=== PATIENT | male | born 1990 | race Caucasian/White ===

== ENCOUNTER 2016-06-02 11:15 | Inpatient (IN) | payer OTHER ==
--- NOTE | ~2016-06-02 | HP ---
Unit #: [id number] #: [id number] Patient: ИРИНА MOYA [id number] [facility] [address] [place] [address] [id number] MR#: [id number] NAME: ИРИНА MOYA. ROOM: P110 Age: 25 Sex: M Admission Date: 06/02/2016 : 1990 Attending Physician: Calli Waite M.D. Admitting Physician: Calli Waite M.D. Primary Care Physician: Destiny Bingham M.D. HISTORY AND PHYSICAL HISTORY OF PRESENT ILLNESS Ирина is a 25 year old admitted to [address] [place] [address] because of his continued drug use. He has had other admissions to this facility. PAST MEDICAL HISTORY Long history of polysubstance abuse to include alcohol and methamphetamine. PAST SURGICAL HISTORY Nothing reported. ALLERGIES Penicillin (hives). SOCIAL HISTORY Smokes 1 1/2 packs per day, drinks alcohol frequently. Has a history of illicit drug use to include methamphetamine. FAMILY HISTORY Medically noncontributory. REVIEW OF SYSTEMS CONSTITUTIONAL: No fever or chills. HEENT: Denies any sore throat, ear pain or runny nose. CARDIOVASCULAR: Denies chest pain, irregular heart rhythm or palpitations. CHEST: Denies shortness of breath or cough. No hemoptysis. GASTROINTESTINAL: Denies nausea, vomiting, diarrhea or chronic constipation. ENDOCRINE: Denies history of increased thirst or urination. No recent significant weight loss or gain. GENITOURINARY: Denies dysuria, frequency, or hematuria. SKIN: Denies any rashes. HEMATOLOGIC: Denies history of increased bleeding or bruising. MUSCULOSKELETAL: Denies any hot, swollen joints. No generalized muscle pain. NEUROLOGIC: Denies problems with vision or speech. No frequent, severe headaches. No numbness, tingling or weakness in any extremities. Denies loss of bladder or bowel control. CURRENT MEDICATIONS 1. Abilify 400 mg IM q month Unit #: [id number] #: [id number] Patient: ИРИНА MOYA 2. Neurontin 400 mg t.i.d. 3. Inderal 20 mg t.i.d. 4. Thorazine 50 mg q.6 h. p.r.n. 5. Milk of Magnesia p.r.n. 6. Maalox p.r.n. 7. Tylenol p.r.n. 8. Nicotine patch 21 mg daily 9. Ambien 10 mg q.h.s. p.r.n. PHYSICAL EXAMINATION GENERAL: Alert, well-nourished, in no apparent distress. VITAL SIGNS: Blood pressure 130/94, heart rate 80, respirations 16, temperature 98.6. WEIGHT: 216 pounds. HEIGHT: 5'10". SKIN: Warm and dry without rash or lesion. HEENT: Normocephalic. TMs not viewed. Oral and nasal passages clear. Conjunctivae clear. Pupils equal, round and reactive to light and accommodation. Extraocular movements intact. NECK: Supple without lymphadenopathy or thyromegaly. HEART: Regular rate and rhythm without murmur. LUNGS: Clear. ABDOMEN: Soft, nontender. : Not done. EXTREMITIES: No evidence of cyanosis, clubbing or edema. Moves all extremities without focal deficit. NEUROLOGICAL: Grossly within normal limits. Cranial Nerves: II: Visual borden are intact. III, IV AND : Extraocular movements are intact. Pupils are equal, round and reactive to light. V: Facial sensation is grossly normal. VII: Facial movements and expression are normal. VIII: Auditory acuity grossly intact. IX, X: Uvula is midline. Phonation is normal. XI: Patient shrugs shoulders and turns head normally. XII: Tongue protrudes in the midline. Sensory and Motor Function: Sensory and motor sensation is grossly normal. Motor: moves all extremities well. Coordination: Gait is normal. Deep Tendon Reflexes: Intact. IMPRESSION Psychiatric admission RECOMMENDATIONS PSYCHIATRIC: Per psychiatrist. MEDICAL: I see no contraindications to participating in facility's activities. MEDICAL PROGNOSIS Good. MEDICAL CONDITION Stable. Dictated by... Unit #: [id number] #: [id number] Patient: ИРИНА MOYA Deepika Murdock P.A.-C. for Francisco Javier Dutta/cliff TD: 06/03/2016 04:16 JOB #: [id number] HISTORY AND PHYSICAL X Alondra Murdock X HISTORY AND PHYSICAL
--- NOTE | ~2016-06-02 | PA ---
Unit #: [id number] #: [id number] Patient: ИРИНА SHANKS [id number] [place] [address] [id number] I MR#: [id number] NAME: ИРИНА SHANKS. ROOM: P110 Age: 25 Sex: M Admission Date: 06/02/2016 : 1990 Date of Assessment: Attending Physician: Calli Waite M.D. Admitting Physician: Calli Waite M.D. Primary Care Physician: Destiny Bingham M.D. PSYCHIATRIC ASSESSMENT DATE OF SERVICE 06/03/2016. IDENTIFYING DATA Mr. Shanks is a 25-year-old, single, white male, who was stepped up to the inpatient unit from the outpatient treatment program. CHIEF COMPLAINT "Relapsed on meth." HISTORY OF PRESENT ILLNESS Mr. Shanks is a 25-year-old white male with history of schizoaffective disorder, who is on a long-acting monthly injection, and has been failing the outpatient treatment program. He has been seen to be persistently psychotic and then refusing most of the treatment options recommended; however, he came in on Thursday morning and was seen to be very bizarre, disorganized, and did admit that he relapsed on methamphetamine over the weekend and was very paranoid, delusional, not making much sense, unable to carry on meaningful conversation, was completely out of touch with reality, and unable to even to take care of his personal hygiene and shaved half of the face and on the face, there were patches of hair all over his face and his shirt was not buttoned right and his hair were all messed up and he was very restless, anxious, and unable to sit still and was exhibiting some agitation, irritability, and was difficult to be getting any meaningful conversation and was seen to be danger to self and others with worsening psychosis and ability to take care of himself and as such, recommendation for inpatient level of care was made and the patient was stepped up to the inpatient unit. SUBSTANCE ABUSE HISTORY The patient has a history of methamphetamine dependence and though he has experimented with other drugs, it appears that methamphetamine has been his drug of choice. PAST PSYCHIATRIC HISTORY The patient has a long history of chronic mental illness with schizoaffective disorder, multiple inpatient hospitalizations across different facilities including [facility], and [facility] and currently [facility] as well as with ongoing long-[facility] through [facility], but he has been on long-acting injectable antipsychotic, a couple of are maintained, but has been Unit #: [id number] #: [id number] Patient: ИРИНА SHANKS noncompliant with most of his oral medications and as such, has been decompensating. PAST MEDICAL HISTORY No acute or chronic medical illnesses. ALLERGIES Penicillin. PERSONAL AND SOCIAL HISTORY A 25-year-old white male, who reports that he is single, unemployed, and lives by himself and has fairly decent social support system. His father has been involved in his care. MENTAL STATUS EXAMINATION Young white male, who was casually dressed with fair personal hygiene, appears to be in no acute distress or discomfort. He was awake and alert on interaction with intact orientation to time, place, and person. His mood was anxious and depressed with a congruent affect. His speech was slow and tangential. His thought processes were disorganized with some looseness of associations and flight of ideas and paranoid ideations and delusional behavior. His insight and judgment remain significantly impaired. DIAGNOSTIC IMPRESSION Psychiatric: Schizoaffective disorder, bipolar type, most recent episode manic with psychosis; methamphetamine dependence, moderate. Medical: None. Stressors: Moderate psychosocial stressors. TREATMENT PLAN 1. The patient has presented with a history of chronic mental illness and has been decompensating and will need inpatient hospitalization for safety and stabilization. We will start him back on his home medications. We will adjust the medications and monitor response. 2. Supportive therapy was provided to the patient. 3. Safe, structured, and nourishing environment will be provided. ESTIMATED LENGTH OF STAY 5 to 7 days. ABILITY TO HELP SELF Limited. WILLINGNESS TO HELP SELF The patient appears to be willing to help self. STRENGTHS 1. Communicative. 2. Cooperative. PROBLEMS 1. Chronic dysphoric symptoms. 2. Chronic chemical dependency. 3. Poor social support system. DISCHARGE CRITERIA This will be contingent upon the patient's ability to show resolution of Unit #: [id number] #: [id number] Patient: ИРИНА SHANKS his psychosis and his ability to stay safe to himself, particularly after discharge from the hospital. Dictated by... Francisco Javier Hackett/afsaneh TD: 06/04/2016 02:05 JOB #: [id number] PSYCHIATRIC ASSESSMENT X Calli Waite MD PSYCHIATRIC ASSESSMENT
--- NOTE | ~2016-06-02 | DS ---
Unit #: [id number] #: [id number] Patient: ИРИНА SHANKS [id number] [facility] [address] [place] [address] [id number] I MR#: [id number] NAME: ИРИНА SHANKS. ROOM: [facility] Age: 25 Sex: M Admission Date: 06/02/2016 : 1990 Discharge Date: 06/06/2016 Attending Physician: Calli Waite M.D. Primary Care Physician: Destiny Bingham M.D. DISCHARGE SUMMARY IDENTIFYING DATA Mr. Shanks is a 25-year-old single white male, who was stepped up to the inpatient unit from the outpatient treatment program. DISCHARGE DIAGNOSES Psychiatric: Schizoaffective disorder, bipolar type, most recent episode manic with psychosis; methamphetamine dependence, moderate. Medical: None. Stressors: Moderate psychosocial stressors. HISTORY OF PRESENT ILLNESS Please see initial psychiatric evaluation for details. PAST PSYCHIATRIC HISTORY Please see initial psychiatric evaluation for details. PAST MEDICAL HISTORY Please see initial psychiatric evaluation for details. HOSPITAL COURSE The patient was admitted to the adult psychiatric unit at [facility] and was oriented to the hospital environment. Routine p.r.n. medications were initiated, and he was started back on his home medications and medications were adjusted and Zyprexa was added and increased to 20 mg at bedtime with good tolerability and therapeutic response. Followed by which, it was decided that he will be discharged home and will continue treatment on an outpatient basis. DISCHARGE MEDICATIONS Zyprexa 20 mg one at bedtime for psychosis, and Abilify Maintena 400 mg intramuscular every 30 days with next dose being due on 06/06/2016. DISCHARGE CONDITION Stable. PROGNOSIS Fair. Dictated by... Calli Waite M.D. IAA/kelinl Unit #: [id number] #: [id number] Patient: ИРИНА SHANKS TD: 06/06/2016 08:44 JOB #: [id number] DISCHARGE SUMMARY X Calli Waite MD X DISCHARGE SUMMARY
--- NOTE | ~2016-06-02 | PN ---
Unit #: [id number] #: [id number] Patient: ИРИНА SHANKS [id number] [facility] [address] [place] [address] [id number] I MR#: [id number] NAME: ИРИНА SHANKS. ROOM: P125 Age: 25 Sex: M Admission Date: 06/02/2016 : 1990 Attending Physician: Calli Waite M.D. Admitting Physician: Calli Waite M.D. Primary Care Physician: Francisco Javier Bowen PROGRESS NOTES DATE OF SERVICE 06/05/2016 DISCUSSION Mr. Shanks is a 25-year-old white male who was seen today. Chart was reviewed and case was discussed with the staff. He has been anxious, withdrawn, and seclusive to himself that he has been taking Zyprexa last night. Meanwhile, he stated that has to get (1) __ for his monthly injection of Abilify tomorrow. MENTAL STATUS EXAMINATION Young white male who is casually dressed with fair personal hygiene, appears to be in no acute distress or discomfort. He was awake and alert on interaction with intact orientation. His mood is anxious with congruent affect. He denies any suicidal or homicidal ideations. His thought process was disorganized with some looseness of associations and paranoid ideations. His insight and judgment remain significantly impaired. TREATMENT PLAN We will continue him on his current medications and treatment protocol. We will monitor his response to the medications and make further adjustments as needed. Dictated by... Francisco Javier Hackett/ashlee TD: 06/06/2016 10:22 JOB #: [id number] MARIANO PROGRESS NOTES X Calli Waite MD PROGRESS NOTE
--- NOTE | ~2016-06-02 | PN ---
Unit #: [id number] #: [id number] Patient: ИРИНА SHANKS [id number] [facility] [address] [place] [address] [id number] I MR#: [id number] NAME: ИРИНА SHANKS. ROOM: [facility] Age: 25 Sex: M Admission Date: 06/02/2016 : 1990 Attending Physician: Calli Waite M.D. Admitting Physician: Calli Waite M.D. Primary Care Physician: Francisco Javier Bowen NOTES DATE OF SERVICE: 06/02/2016 SUBJECTIVE Mr. Shanks is a 25-year-old white male with mood disorder and psychosis, who was seen today and chart was reviewed, and case was discussed with the staff, who reports the patient has been acutely psychotic and currently relapsed on methamphetamine over the weekend and has been completely out of touch with reality with bizarre behavior, paranoid, delusional behavior and inability to carry on a meaningful conversation or take care of his personal hygiene and as such, recommendation for the patient to be stepped in inpatient level of care for acute debilitating psychosis will be made. Dictated by... Francisco Javier Hackett/afsaneh TD: 06/03/2016 04:30 JOB #: [id number] MARIANO BAINS NOTES X Calli Waite MD PROGRESS NOTE
--- NOTE | ~2016-06-02 | PN ---
Unit #: [id number] #: [id number] Patient: ИРИНА SHANKS [id number] [facility] [address] [place] [address] [id number] I MR#: [id number] NAME: ИРИНА SHANKS. ROOM: [facility] Age: 25 Sex: M Admission Date: 06/02/2016 : 1990 Attending Physician: Calli Waite M.D. Admitting Physician: Calli Waite M.D. Primary Care Physician: Francisco Javier Bowen PROGRESS NOTES DATE 06/04/2016 DISCUSSION Mr. Shanks is a 25-year-old white male who was seen today and chart was reviewed and case was discussed with the staff. He has been anxious, withdrawn though has not shown any agitation, irritability and has been cooperative with treatment recommendations as he has been taking medications and tolerating them fairly well with no reported side effects. MENTAL STATUS EXAMINATION Young white male who was casually dressed with fair personal hygiene and appears to be in no acute distress or discomfort. He was awake and alert on interaction with intact orientation. His mood was anxious with congruent affect. His speech is slow and restricted in content. He denies any suicidal or homicidal ideations. His thought processes were disorganized with some looseness of associations and paranoid ideations and delusional behavior. His insight and judgement remains significantly impaired. TREATMENT PLAN 1. Will continue his current medications and treatment protocol. Will monitor his response to the medications and make further adjustments as needed. 2. Will continue to follow up. Dictated by... Francisco Javier Hackett/juli TD: 06/04/2016 22:02 JOB #: [id number] Unit #: [id number] #: [id number] Patient: ИРИНА SHANKS MARIANO PROGRESS NOTES X Calli Waite MD PROGRESS NOTE
== END 2016-06-06 13:00 | DRG 885 ==
LOC: POF 11:15 → P1S 11:58 → POF 14:16 → P1S 14:19
DX: F25.0 Schizoaffective disorder, bipolar type (principal); F13.20 Sedative, hypnotic or anxiolytic dependence, uncomplicated; Z88.0 Allergy status to penicillin; F17.210 Nicotine dependence, cigarettes, uncomplicated
CPT/HCPCS: 80307; G0177; G0410